=== PATIENT | female | born 1955 | race Caucasian/White ===

== ENCOUNTER 2024-10-29 14:27 | Emergency (ER) | payer MEDICARE, MEDICAID ==
[~2024-10-29] VITALS: Ht 152.4 cm; Wt 51.4 kg
[2024-10-29 15:20] LABS: BASO # 0.1 10^3/uL (0.0-0.2); BASO % 0.7 % (0.0-1.0); EOS # 0.2 10^3/uL (0.0-0.5); EOS % 2.3 % (0.0-3.0); HEMATOCRIT 41.2 % (36.0-47.0); HEMOGLOBIN 13.7 g/dl (12.0-15.5); LYMPH # 1.8 10^3/uL (1.5-5.0); MEAN CORPUSCULAR HEMOGLOBIN 35.5 pg (27.0-33.0); MEAN CORPUSCULAR HGB CONC 33.3 g/dl (32.0-36.5); MEAN CORPUSCULAR VOLUME 106.7 fl (80.0-96.0); MONO # 0.9 10^3/uL (0.0-0.8); MONO % 11.2 % (2.0-8.0); NEUTROPHILS # 5.1 10^3/uL (1.5-8.5); NEUTROPHILS % 63.2 % (36.0-66.0); PLATELET COUNT, AUTOMATED 340 10^3/uL (150-450); RED BLOOD COUNT 3.86 10^6/uL (4.00-5.40); WHITE BLOOD COUNT 8.1 10^3/uL (4.0-10.0)
[2024-10-29 15:36] LABS: INR 0.96; PARTIAL THROMBOPLASTIN TIME 32.2 SECONDS (24.8-34.2)
[2024-10-29 15:49] LABS: BLOOD UREA NITROGEN 17 MG/DL (9-23); CALCIUM LEVEL 9.4 MG/DL (8.3-10.6); CARBON DIOXIDE LEVEL 26 MMOL/L (20-31); CHLORIDE LEVEL 101 MMOL/L (98-107); CREATININE FOR GFR 0.85 MG/DL (0.55-1.30); GLOMERULAR FILTRATION RATE > 60.0 (>45); GLUCOSE, FASTING 114 MG/DL (74-106); POTASSIUM SERUM 5.6 MMOL/L (3.5-5.1); SODIUM LEVEL 132 MMOL/L (136-145)
[2024-10-29] MEDS ORDERED: oxyCODONE 10 MG CR TAB PO ONE (22:40)
[2024-10-29] MEDS: oxyCODONE 5MG TAB PO ONE (22:42)
[2024-10-29 23:35] VITALS: BP 162/77; TEMP 97.7; O2SAT 94
== END 2024-10-29 23:38 | disposition home or self-care (01) ==
LOC: M ED 14:27
DX: S30.0XXA Contusion of lower back and pelvis, initial encounter (principal); S70.00XA Contusion of unspecified hip, initial encounter; W00.0XXA Fall on same level due to ice and snow, initial encounter; Y92.410 Unspecified street and highway as the place of occurrence of the external cause; Y93.9 Activity, unspecified; Y99.9 Unspecified external cause status; Z96.643 Presence of artificial hip joint, bilateral; Z88.0 Allergy status to penicillin

== ENCOUNTER 2024-11-15 16:24 | Emergency (ER) | payer MEDICARE, MEDICAID ==
[~2024-11-15] VITALS: Ht 152.4 cm; Wt 56.8 kg
[2024-11-15] MEDS ORDERED: CLOP75TA2 (16:35)
[2024-11-15] MEDS ORDERED: FAMO40TA3 (16:35)
[2024-11-15] MEDS ORDERED: NALO12.5 (16:35)
[2024-11-15] MEDS ORDERED: DOLU1TAB (16:35)
[2024-11-15] MEDS ORDERED: AMLO1TAB24 (16:35)
[2024-11-15] MEDS ORDERED: FLUTISP (16:35)
[2024-11-15] MEDS ORDERED: SYMB16INH (16:35)
[2024-11-15] MEDS ORDERED: ALBU8.5H (16:35)
[2024-11-15] MEDS ORDERED: LISI10TA22 (16:35)
[2024-11-15] MEDS ORDERED: ATOR80TA59 (16:35)
[2024-11-15] MEDS ORDERED: OXYC10TA12 (16:35)
[2024-11-15 17:23] LABS: BASO # 0.1 10^3/uL (0.0-0.2); BASO % 0.6 % (0.0-1.0); EOS # 0.2 10^3/uL (0.0-0.5); EOS % 1.8 % (0.0-3.0); HEMATOCRIT 46.8 % (36.0-47.0); HEMOGLOBIN 15.8 g/dl (12.0-15.5); LYMPH # 1.8 10^3/uL (1.5-5.0); LYMPH % 21.5 % (24.0-44.0); MEAN CORPUSCULAR HEMOGLOBIN 37.4 pg (27.0-33.0); MEAN CORPUSCULAR HGB CONC 33.8 g/dl (32.0-36.5); MEAN CORPUSCULAR VOLUME 110.6 fl (80.0-96.0); MONO # 0.7 10^3/uL (0.0-0.8); NEUTROPHILS # 5.4 10^3/uL (1.5-8.5); PLATELET COUNT, AUTOMATED 429 10^3/uL (150-450); RED BLOOD COUNT 4.23 10^6/uL (4.00-5.40); WHITE BLOOD COUNT 8.1 10^3/uL (4.0-10.0)
[2024-11-15 17:29] LABS: ERYTHROCYTE SEDIMENTATION RATE 52 mm/hr (0-30)
[2024-11-15 17:30] LABS: APPEARANCE, URINE CLEAR (CLEAR); BACTERIA, URINE AUTO NEGATIVE (NEGATIVE); BILIRUBIN, URINE AUTO NEGATIVE (NEGATIVE); BLOOD, URINE BLOOD NEGATIVE (NEGATIVE); COLOR, URINE YELLOW (YELLOW); GLUCOSE, URINE (UA) AUTO NEGATIVE (NEGATIVE); KETONE, URINE AUTO NEGATIVE (NEGATIVE); LEUKOCYTE ESTERASE, URINE AUTO NEGATIVE (NEGATIVE); NITRITE, URINE AUTO NEGATIVE (NEGATIVE); PROTEIN, URINE AUTO NEGATIVE (NEGATIVE); RBC, URINE AUTO 0 /HPF (0-3); SPECIFIC GRAVITY URINE AUTO 1.005 (1.002-1.035); SQUAMOUS EPITHELIAL CELL UR AU 3 /HPF (0-6); UROBILINOGEN, URINE AUTO 0.2 mg/dL (0.0-2.0); WBC, URINE AUTO 1 /HPF (0-3)
[2024-11-15 17:32] LABS: ALBUMIN 3.4 G/DL (3.2-5.2); ALKALINE PHOSPHATASE 184 U/L (35-104); ALT/SGPT 21 U/L (7.0-40); AST/SGOT 17 U/L (<34); BILIRUBIN,DIRECT 0.2 MG/DL (<0.4); BILIRUBIN,TOTAL 0.5 MG/DL (0.3-1.2); BLOOD UREA NITROGEN 11 MG/DL (9-23); C REACTIVE PROTEIN QUANTITATIV 1.34 MG/DL (<1.0); CALCIUM LEVEL 9.9 MG/DL (8.3-10.6); CARBON DIOXIDE LEVEL 30 MMOL/L (20-31); CHLORIDE LEVEL 98 MMOL/L (98-107); CREATININE FOR GFR 0.81 MG/DL (0.55-1.30); GLOMERULAR FILTRATION RATE > 60.0 (>45); GLUCOSE, FASTING 98 MG/DL (74-106); POTASSIUM SERUM 4.2 MMOL/L (3.5-5.1); SODIUM LEVEL 135 MMOL/L (136-145); TOTAL PROTEIN 7.4 G/DL (5.7-8.2)
[2024-11-15] MEDS ORDERED: NYST100085 TOP (18:34)
[2024-11-15 18:59] VITALS: BP 150/70; TEMP 97.6; O2SAT 90
== END 2024-11-15 19:03 | disposition home or self-care (01) ==
LOC: M ED 16:24 → EDBD 16:24 → M ED 19:03
DX: B35.3 Tinea pedis (principal); I10 Essential (primary) hypertension; E78.5 Hyperlipidemia, unspecified; I73.9 Peripheral vascular disease, unspecified; F17.200 Nicotine dependence, unspecified, uncomplicated; Z88.0 Allergy status to penicillin

== ENCOUNTER 2025-10-18 17:14 | Inpatient (IN) | payer MEDICARE, MEDICAID ==
[~2025-10-18] VITALS: Ht 152.4 cm; Wt 54.1 kg
[~2025-10-18 17:14] MED LIST: ALBU8.5H INH; AMLO1TAB24 PO; ATOR80TA59 PO; CLOP75TA2 PO; DOLU1TAB PO; FAMO40TA3 PO; FLUTISP NARES; LISI10TA22 PO; NALO12.5 PO; NYST100085 TOP; OXYC10TA12; SYMB16INH INH
[2025-10-18] MEDS: ACETAMINOPHEN *IV* 1,000 MG in IV 1 EA IV ONE (18:50)
[2025-10-18] MEDS: NS 500 ML IV ONE (18:51)
[2025-10-18 19:31] LABS: ALT/SGPT 23.0 U/L (7.0-40); AST/SGOT 14.0 U/L (<34); CALCIUM LEVEL 10.1 MG/DL (8.3-10.6); CARBON DIOXIDE LEVEL 28.0 MMOL/L (20-31); CHLORIDE LEVEL 100.0 MMOL/L (98-107); CREATININE FOR GFR 1.3 MG/DL (0.55-1.30); GLOMERULAR FILTRATION RATE 45.1 (>45); POTASSIUM SERUM 5.8 MMOL/L (3.5-5.1); SODIUM LEVEL 134.0 MMOL/L (136-145)
[2025-10-18] MEDS ORDERED: ISOVUE-370 76% 100 ML VIAL As Ordered ONE (19:38)
[2025-10-18 19:55] LABS: BASO # 0.0 10^3/uL (0.0-0.2); BASO % 0.1 % (0.0-1.0); EOS # 0.0 10^3/uL (0.0-0.5); EOS % 0.0 % (0.0-3.0); LYMPH # 0.8 10^3/uL (1.5-5.0); LYMPH % 4.5 % (24.0-44.0); MONO # 1.1 10^3/uL (0.0-0.8); MONO % 6.5 % (2.0-8.0); NEUTROPHILS # 13.0 10^3/uL (1.5-8.5); NEUTROPHILS % 76.2 % (36.0-66.0); PLATELET COUNT, AUTOMATED 837 10^3/uL (150-450)
[2025-10-18 20:49] LABS: KETONE, URINE AUTO RFX NEGATIVE (NEGATIVE); LEUKOCYTE ESTERASE UR AUTO RFX NEGATIVE (NEGATIVE); MUCUS, URINE RFX SMALL (NEGATIVE); NITRITE, URINE AUTO RFX NEGATIVE (NEGATIVE); RBC, URINE AUTO RFX 0 /HPF (0-3); SQUAM EPITHELIAL CELL UR AURFX 1 /HPF (0-6); WBC, URINE AUTO RFX 0 /HPF (0-3)
[2025-10-18] MEDS: MORPHINE 4 MG/ML 1 ML VIAL IV PRN (21:04)
[2025-10-18 21:40] LABS: CALCIUM LEVEL 8.6 MG/DL (8.3-10.6); CARBON DIOXIDE LEVEL 30.0 MMOL/L (20-31); CHLORIDE LEVEL 102.0 MMOL/L (98-107); CREATININE FOR GFR 1.28 MG/DL (0.55-1.30); GLOMERULAR FILTRATION RATE 45.9 (>45); POTASSIUM SERUM 5.2 MMOL/L (3.5-5.1); SODIUM LEVEL 134.0 MMOL/L (136-145)
[2025-10-18] MEDS: IPRATROPIUM 0.5 MG/ALBUTEROL 2.5 MG INH SOL UD 3 ML NEB ONE (22:57)
[2025-10-19] MEDS: CYCLOBENZAPRINE 10 MG TABLET PO ONE (01:18)
[2025-10-19] MEDS ORDERED: ALBUTEROL SULFATE 2.5 MG/0.5 ML INH CONCENTRATE NEB SOLN NEB PRN (03:35)
[2025-10-19 08:12] LABS: PLATELET COUNT, AUTOMATED 684 10^3/uL (150-450)
[2025-10-19] MEDS ORDERED: HYDR-4517 PO (08:17)
[2025-10-19] MEDS ORDERED: CARV6.25 PO (08:18)
[2025-10-19] MEDS ORDERED: HOME MED LIST COMPLETE! XX SCH (08:20)
[2025-10-19 08:34] LABS: C REACTIVE PROTEIN QUANTITATIV < 0.50 MG/DL (<1.0)
[2025-10-19 08:43] LABS: ALT/SGPT 21 U/L (7.0-40); AST/SGOT 14 U/L (<34); POTASSIUM SERUM 5.1 MMOL/L (3.5-5.1)
[2025-10-19 08:44] LABS: ATYPICAL LYMPH 9 % (0-5); LYMPHOCYTES 11 % (16-44); METAMYELOCYTES 1 % (0-0); MONOCYTES 5 % (0-5); NEUTROPHILS 71 % (28-66)
[2025-10-19 08:45] LABS: PLATELET CLUMPS SMALL AMT; PLATELET ESTIMATE INCREASED (NORMAL)
[2025-10-19] MEDS: KETOROLAC 30 MG/ML 1 ML VIAL IV SCH (09:00)
[2025-10-19] MEDS: DICLOFENAC EPOLAMINE 1.3% PATCH TOP SCH (09:00)
[2025-10-19] MEDS ORDERED: CYCLOBENZAPRINE 10 MG TABLET PO PRN (09:00)
[2025-10-19] MEDS ORDERED: MOM 30 ML SUSPENSION UDC PO PRN (09:15)
[2025-10-19] MEDS ORDERED: BUDE10.7 INH (09:33)
[2025-10-19] MEDS: SYMBICORT 160/4.5MCG INHALER 6GM INH SCH (09:40)
[2025-10-19] MEDS: PATIROMER SORBITEX CALCIUM 8.4GM POWDER PACKET PO ONE (09:43)
[2025-10-19] MEDS: FAMOTIDINE 20 MG TAB PO SCH (09:43)
[2025-10-19] MEDS: CALCIUM GLUCONATE 1,000 MG in DEXTROSE 5% (D5W) MINI-BAG PLU 100 ML IV ONE (09:43)
[2025-10-19] MEDS: CLOPIDOGREL 75 MG TAB PO SCH (09:43)
[2025-10-19] MEDS: amLODIPine 5 MG TAB PO SCH (09:45)
[2025-10-19] MEDS: HYDROMORPHONE HCL 0.5 MG/0.5 ML SYRINGE IV ONE (09:46)
[2025-10-19] MEDS: ACETAMINOPHEN 500 MG TAB PO SCH (12:00)
[2025-10-19] MEDS ORDERED: FLUTICASONE PROPIONATE 0.05% NASAL SPRAY 16 GM NARES PRN (14:40)
[2025-10-19] MEDS ORDERED: ALBUTEROL 90 MCG/ACT 8 GM HFA INHALER INH PRN (14:40)
[2025-10-19 17:10] VITALS: BP 141/91; TEMP 97.9; O2SAT 98
[2025-10-19] MEDS: MORPHINE 4 MG/ML 1 ML VIAL IV PRN (19:01)
[2025-10-19 20:02] VITALS: BP 128/73; TEMP 98.1; O2SAT 95
[2025-10-19] MEDS: ATORVASTATIN 20 MG TAB PO SCH (20:23)
[2025-10-20 04:18] VITALS: BP 147/76; TEMP 98.9; O2SAT 96
[2025-10-20] MEDS ORDERED: LevoFLOXacin IV 750 MG in IV 1 EA IV SCH (08:25)
[2025-10-20] MEDS ORDERED: metroNIDAZOLE 500 MG in IV 1 EA IV SCH (08:25)
[2025-10-20] MEDS ORDERED: amLODIPine 5 MG TAB PO SCH (09:00)
[2025-10-20 12:00] VITALS: BP 153/101; TEMP 98.8; O2SAT 94
[2025-10-20 12:13] LABS: PLATELET COUNT, AUTOMATED 580 10^3/uL (150-450)
[2025-10-20 12:34] LABS: ALT/SGPT 21.0 U/L (7.0-40); AST/SGOT 19.0 U/L (<34); CALCIUM LEVEL 8.9 MG/DL (8.3-10.6); CARBON DIOXIDE LEVEL 28.0 MMOL/L (20-31); CHLORIDE LEVEL 102.0 MMOL/L (98-107); CREATININE FOR GFR 0.94 MG/DL (0.55-1.30); GLOMERULAR FILTRATION RATE 66.5 (>45); POTASSIUM SERUM 4.4 MMOL/L (3.5-5.1); SODIUM LEVEL 139.0 MMOL/L (136-145)
[2025-10-20 12:56] LABS: ATYPICAL LYMPH 7 % (0-5); EOSINOPHILS 1 % (0-3); LYMPHOCYTES 10 % (16-44); METAMYELOCYTES 1 % (0-0); MONOCYTES 5 % (0-5); MYELOCYTES 2 % (0-0); NEUTROPHILS 70 % (28-66)
[2025-10-20 12:58] LABS: PLATELET CLUMPS SMALL AMT; PLATELET ESTIMATE INCREASED (NORMAL)
[2025-10-20] MEDS: CALCIUM CARBONATE 500 MG CHEW U/D PO PRN (13:27)
[2025-10-20 13:55] VITALS: BP 110/77
[2025-10-20 20:39] VITALS: BP 180/92; TEMP 98.4; O2SAT 95
[2025-10-21 00:41] VITALS: BP 130/76; O2SAT 96
[2025-10-21 05:20] VITALS: BP 140/81; TEMP 97.5; O2SAT 95
[2025-10-21 06:43] LABS: BASO # 0.0 10^3/uL (0.0-0.2); BASO % 0.1 % (0.0-1.0); EOS # 0.1 10^3/uL (0.0-0.5); EOS % 0.5 % (0.0-3.0); LYMPH # 0.8 10^3/uL (1.5-5.0); LYMPH % 6.3 % (24.0-44.0); MONO # 1.0 10^3/uL (0.0-0.8); MONO % 8.4 % (2.0-8.0); NEUTROPHILS # 9.1 10^3/uL (1.5-8.5); NEUTROPHILS % 77.1 % (36.0-66.0)
[2025-10-21 06:56] LABS: PLATELET COUNT, AUTOMATED 466 10^3/uL (150-450)
[2025-10-21 06:57] LABS: ALT/SGPT 20.0 U/L (7.0-40); AST/SGOT 23.0 U/L (<34); CALCIUM LEVEL 8.8 MG/DL (8.3-10.6); CARBON DIOXIDE LEVEL 27.0 MMOL/L (20-31); CHLORIDE LEVEL 103.0 MMOL/L (98-107); CREATININE FOR GFR 0.9 MG/DL (0.55-1.30); GLOMERULAR FILTRATION RATE 70.1 (>45); POTASSIUM SERUM 4.7 MMOL/L (3.5-5.1); SODIUM LEVEL 137.0 MMOL/L (136-145)
[2025-10-21 12:00] VITALS: BP 125/88; TEMP 98.7; O2SAT 95
[2025-10-21] MEDS: HYDROMORPHONE HCL 0.5 MG/0.5 ML SYRINGE IV ONE (12:55)
[2025-10-21 20:00] VITALS: BP_SYST 132; BP_SYST 135; BP_DIAS 96; BP_DIAS 98; TEMP 97.5; TEMP 98.1; O2SAT 98
[2025-10-22 04:00] VITALS: BP 149/81; TEMP 97.5; O2SAT 98
[2025-10-22 05:38] VITALS: BP 149/81; TEMP 97.5
[2025-10-22 06:19] LABS: BASO # 0.1 10^3/uL (0.0-0.2); BASO % 0.4 % (0.0-1.0); EOS # 0.1 10^3/uL (0.0-0.5); EOS % 0.4 % (0.0-3.0); LYMPH # 0.6 10^3/uL (1.5-5.0); LYMPH % 3.0 % (24.0-44.0); MONO # 1.1 10^3/uL (0.0-0.8); MONO % 5.4 % (2.0-8.0); NEUTROPHILS # 17.1 10^3/uL (1.5-8.5); NEUTROPHILS % 88.1 % (36.0-66.0)
[2025-10-22 06:20] LABS: PLATELET COUNT, AUTOMATED 320 10^3/uL (150-450)
[2025-10-22 06:45] LABS: ALT/SGPT 21.0 U/L (7.0-40); AST/SGOT 28.0 U/L (<34); CALCIUM LEVEL 8.7 MG/DL (8.3-10.6); CARBON DIOXIDE LEVEL 23.0 MMOL/L (20-31); CHLORIDE LEVEL 104.0 MMOL/L (98-107); CREATININE FOR GFR 0.79 MG/DL (0.55-1.30); GLOMERULAR FILTRATION RATE 81.9 (>45); POTASSIUM SERUM 4.4 MMOL/L (3.5-5.1); SODIUM LEVEL 136.0 MMOL/L (136-145)
[2025-10-22 12:00] VITALS: BP 136/91; TEMP 99.6; O2SAT 91
[2025-10-22] MEDS: LR 1,000 ML IV SCH (15:39)
[2025-10-22 20:00] VITALS: BP 123/80; TEMP 98.3; O2SAT 91
[2025-10-23 04:00] VITALS: BP 106/71; TEMP 98.4; O2SAT 93
[2025-10-23 06:17] LABS: BASO # 0.1 10^3/uL (0.0-0.2); BASO % 0.2 % (0.0-1.0); EOS # 0.1 10^3/uL (0.0-0.5); EOS % 0.3 % (0.0-3.0); LYMPH # 0.6 10^3/uL (1.5-5.0); LYMPH % 2.7 % (24.0-44.0); MONO # 1.2 10^3/uL (0.0-0.8); MONO % 5.1 % (2.0-8.0); NEUTROPHILS # 20.2 10^3/uL (1.5-8.5); NEUTROPHILS % 89.7 % (36.0-66.0); PLATELET COUNT, AUTOMATED 261 10^3/uL (150-450)
[2025-10-23 07:04] LABS: ALT/SGPT 32 U/L (7.0-40); AST/SGOT 46 U/L (<34); CALCIUM LEVEL 8.7 MG/DL (8.3-10.6); CARBON DIOXIDE LEVEL 25 MMOL/L (20-31); CHLORIDE LEVEL 104 MMOL/L (98-107); CREATININE FOR GFR 0.73 MG/DL (0.55-1.30); GLOMERULAR FILTRATION RATE > 90.0 (>45); POTASSIUM SERUM 4.8 MMOL/L (3.5-5.1); SODIUM LEVEL 136 MMOL/L (136-145)
[2025-10-23] MEDS: PANTOPRAZOLE 40MG VIAL IV SCH (08:21)
[2025-10-23] MEDS: metroNIDAZOLE 500 MG in IV 1 EA IV SCH (13:39)
[2025-10-23 19:28] VITALS: BP 106/67; TEMP 98.8; O2SAT 90
[2025-10-23] MEDS: LR 1,000 ML IV SCH (20:00)
[2025-10-24 04:59] VITALS: BP 128/67; TEMP 98.1; O2SAT 97
[2025-10-24] MEDS: LevoFLOXacin IV 750 MG in IV 1 EA IV SCH (05:53)
[2025-10-24 07:02] LABS: BASO # 0.0 10^3/uL (0.0-0.2); BASO % 0.2 % (0.0-1.0); EOS # 0.1 10^3/uL (0.0-0.5); EOS % 0.4 % (0.0-3.0); LYMPH # 0.5 10^3/uL (1.5-5.0); LYMPH % 2.8 % (24.0-44.0); MONO # 1.2 10^3/uL (0.0-0.8); MONO % 6.1 % (2.0-8.0); NEUTROPHILS # 16.6 10^3/uL (1.5-8.5); NEUTROPHILS % 88.9 % (36.0-66.0); PLATELET COUNT, AUTOMATED 213 10^3/uL (150-450)
[2025-10-24 07:32] LABS: ALT/SGPT 25.0 U/L (7.0-40); AST/SGOT 26.0 U/L (<34); CALCIUM LEVEL 8.1 MG/DL (8.3-10.6); CARBON DIOXIDE LEVEL 23.0 MMOL/L (20-31); CHLORIDE LEVEL 101.0 MMOL/L (98-107); CREATININE FOR GFR 0.91 MG/DL (0.55-1.30); GLOMERULAR FILTRATION RATE 69.2 (>45); POTASSIUM SERUM 3.9 MMOL/L (3.5-5.1); SODIUM LEVEL 134.0 MMOL/L (136-145)
[2025-10-24] MEDS: MIRALAX *UNIT DOSE* 17 GM PACKET PO ONE (09:02)
[2025-10-24 12:13] VITALS: BP 108/64; TEMP 98.8; O2SAT 94
[2025-10-24] MEDS: D5W/LR 1,000 ML IV SCH (12:30)
[2025-10-24 20:00] VITALS: BP 141/82; TEMP 98.4; O2SAT 95
[2025-10-25 04:00] VITALS: BP 97/62; TEMP 98.2; O2SAT 91
[2025-10-25] MEDS: SENNOSIDES/DOCUSATE SODIUM 8.6 MG/50MG TAB PO PRN (07:50)
[2025-10-25 10:16] LABS: BASO # 0.0 10^3/uL (0.0-0.2); BASO % 0.2 % (0.0-1.0); EOS # 0.1 10^3/uL (0.0-0.5); EOS % 0.3 % (0.0-3.0); LYMPH # 0.4 10^3/uL (1.5-5.0); LYMPH % 2.6 % (24.0-44.0); MONO # 1.1 10^3/uL (0.0-0.8); MONO % 7.3 % (2.0-8.0); NEUTROPHILS # 13.2 10^3/uL (1.5-8.5); NEUTROPHILS % 87.9 % (36.0-66.0); PLATELET COUNT, AUTOMATED 211 10^3/uL (150-450)
[2025-10-25 11:05] LABS: ALT/SGPT 28.0 U/L (7.0-40); AST/SGOT 32.0 U/L (<34); CALCIUM LEVEL 8.0 MG/DL (8.3-10.6); CARBON DIOXIDE LEVEL 25.0 MMOL/L (20-31); CHLORIDE LEVEL 100.0 MMOL/L (98-107); CREATININE FOR GFR 1.03 MG/DL (0.55-1.30); GLOMERULAR FILTRATION RATE 59.6 (>45); POTASSIUM SERUM 4.3 MMOL/L (3.5-5.1); SODIUM LEVEL 133.0 MMOL/L (136-145)
[2025-10-25 11:37] VITALS: BP 113/59; TEMP 98.4; O2SAT 92
[2025-10-25] MEDS: ONDANSETRON 4MG/2ML VIAL IV SCH (11:50)
[2025-10-25 16:00] VITALS: BP 131/83; TEMP 98.1; O2SAT 91
[2025-10-25 19:44] VITALS: BP 117/67; TEMP 98
[2025-10-25 21:00] VITALS: O2SAT 97
[2025-10-25] MEDS: NICOTINE 14 MG/24 HR TRANSDERMAL TD SCH (21:00)
[2025-10-26 04:37] VITALS: BP 113/77; TEMP 98.8; O2SAT 95
[2025-10-26] MEDS: METOPROLOL SUCC *XL* 12.5 MG PER 1/2 TAB PO SCH (08:44)
[2025-10-26 08:47] VITALS: O2SAT 91; O2SAT 95
[2025-10-26 12:20] VITALS: BP 115/63
[2025-10-26] MEDS: BISACODYL 5 MG TAB PO ONE (12:20)
[2025-10-26] MEDS: FUROSEMIDE 20 MG/2 ML VIAL IV ONE (12:20)
[2025-10-26] MEDS: ASPIRIN 81 MG ENTERIC TABLET PO SCH (12:54)
[2025-10-26] MEDS: MIRALAX *UNIT DOSE* 17 GM PACKET PO SCH (12:54)
[2025-10-26 14:00] VITALS: BP 150/89; TEMP 98.1; O2SAT 87
[2025-10-26] MEDS: ENOXAPARIN 40 MG/0.4 ML SYRINGE (J1650 PER 10MG) SC SCH (20:44)
[2025-10-27 04:19] VITALS: BP 109/58; TEMP 97.7; O2SAT 91
[2025-10-27 07:42] LABS: PLATELET COUNT, AUTOMATED 173 10^3/uL (150-450)
[2025-10-27 08:00] VITALS: BP 96/68; TEMP 98; O2SAT 95
[2025-10-27 08:06] LABS: ATYPICAL LYMPH 1 % (0-5); BASOPHILS 1 % (0-1); EOSINOPHILS 1 % (0-3); MONOCYTES 8 % (0-5); NEUTROPHILS 86 % (28-66)
[2025-10-27 08:08] LABS: PLATELET ESTIMATE NORMAL (NORMAL)
[2025-10-27 08:18] LABS: ALT/SGPT 22.0 U/L (7.0-40); AST/SGOT 24.0 U/L (<34); CALCIUM LEVEL 8.3 MG/DL (8.3-10.6); CARBON DIOXIDE LEVEL 22.0 MMOL/L (20-31); CHLORIDE LEVEL 100.0 MMOL/L (98-107); CREATININE FOR GFR 1.16 MG/DL (0.55-1.30); GLOMERULAR FILTRATION RATE 51.7 (>45); POTASSIUM SERUM 4.3 MMOL/L (3.5-5.1); SODIUM LEVEL 130.0 MMOL/L (136-145)
== END 2025-10-27 08:20 | disposition other institution (70) | DRG 439 ==
LOC: M ED 17:14 → OBSVTOIN 17:15 → M ED INP 17:15 → M MS4PR 10-19 17:10 → M MS5PR 10-25 15:38
PROVIDERS: ADMIT General Practice; ATTEND Student in an Organized Health Care Education/Training Program
DX: K85.10 Biliary acute pancreatitis without necrosis or infection (principal); B20 Human immunodeficiency virus [HIV] disease; E87.1 Hypo-osmolality and hyponatremia; J44.9 Chronic obstructive pulmonary disease, unspecified; I10 Essential (primary) hypertension; M54.50 Low back pain, unspecified; I25.10 Atherosclerotic heart disease of native coronary artery without angina pectoris; E87.5 Hyperkalemia; G89.29 Other chronic pain; I73.9 Peripheral vascular disease, unspecified; N20.0 Calculus of kidney; F17.200 Nicotine dependence, unspecified, uncomplicated; Z79.51 Long term (current) use of inhaled steroids; Z79.899 Other long term (current) drug therapy; Z88.0 Allergy status to penicillin; Z90.49 Acquired absence of other specified parts of digestive tract; Z95.5 Presence of coronary angioplasty implant and graft; Z95.828 Presence of other vascular implants and grafts; Z79.891 Long term (current) use of opiate analgesic

== ENCOUNTER 2025-10-31 13:31 | Inpatient (IN) | payer MEDICARE, MEDICAID ==
[~2025-10-31 13:31] MED LIST changes: +BUDE10.7 INH; +CARV6.25 PO; +HYDR-4517 PO
[2025-10-31 16:54] VITALS: BP 131/76; TEMP 98.7; O2SAT 89
[2025-10-31] MEDS ORDERED: MIRA3350 PO (17:45)
[2025-10-31] MEDS ORDERED: FURO40TA2 PO (17:45)
[2025-10-31] MEDS ORDERED: MAGN400T33 PO (17:45)
[2025-10-31] MEDS ORDERED: MOME13HF8 INH (17:45)
[2025-10-31] MEDS ORDERED: OXYC10TA12 PO (17:45)
[2025-10-31] MEDS ORDERED: SENN-188 PO (17:45)
[2025-10-31] MEDS ORDERED: ATOR1TAB21 PO (17:45)
[2025-10-31] MEDS ORDERED: PANT-23 PO (17:45)
[2025-10-31] MEDS ORDERED: NALOXONE IV (17:45)
[2025-10-31] MEDS ORDERED: HOME MED LIST COMPLETE! XX SCH (17:50)
[2025-10-31 18:00] LABS: PLATELET COUNT, AUTOMATED 148 10^3/uL (150-450)
[2025-10-31 18:28] LABS: ALT/SGPT 17.0 U/L (7.0-40); AST/SGOT 22.0 U/L (<34); CALCIUM LEVEL 7.6 MG/DL (8.3-10.6); CARBON DIOXIDE LEVEL 31.0 MMOL/L (20-31); CHLORIDE LEVEL 96.0 MMOL/L (98-107); CREATININE FOR GFR 0.76 MG/DL (0.55-1.30); GLOMERULAR FILTRATION RATE 85.8 (>45); POTASSIUM SERUM 3.7 MMOL/L (3.5-5.1); SODIUM LEVEL 134.0 MMOL/L (136-145)
[2025-10-31 18:33] LABS: INR 1.24
[2025-10-31] MEDS ORDERED: FLUTICASONE PROPIONATE 0.05% NASAL SPRAY 16 GM NARES PRN (19:00)
[2025-10-31] MEDS ORDERED: ALBUTEROL 90 MCG/ACT 8 GM HFA INHALER INH PRN (19:00)
[2025-10-31 19:59] VITALS: BP 115/68; TEMP 101; O2SAT 91
[2025-10-31] MEDS: SYMBICORT 160/4.5MCG INHALER 6GM INH SCH (20:13)
[2025-10-31] MEDS: PANTOPRAZOLE 40MG TAB PO SCH (20:34)
[2025-10-31] MEDS: SENNA 8.6 MG TAB PO SCH (20:34)
[2025-10-31] MEDS: FUROSEMIDE 40 MG/4 ML VIAL IV SCH (20:34)
[2025-10-31] MEDS: ACETAMINOPHEN 500 MG TAB PO SCH (20:36)
[2025-10-31] MEDS: HEPARIN SOD 5000 UNITS/ML 1 ML VIAL/SYRINGE SC SCH (20:36)
[2025-10-31] MEDS ORDERED: LevoFLOXacin IV 750 MG in IV 1 EA IV SCH (21:00)
[2025-10-31 21:43] VITALS: BP 127/74; TEMP 99.8; O2SAT 92
[2025-10-31 23:38] VITALS: BP 134/80; TEMP 98.8; O2SAT 94
[2025-11-01] VITALS (10 sets, daily range): BP systolic 105–139; BP diastolic 51–86; TEMP 97.8–98.2; O2SAT 84–95
[2025-11-01] MEDS: metroNIDAZOLE 500 MG in IV 1 EA IV SCH (01:42)
[2025-11-01] MEDS: LevoFLOXacin IV 750 MG in IV 1 EA IV SCH (02:43)
[2025-11-01] MEDS: TIOTROPIUM BROM 2.5MCG/ACTUATION 4GM INH INH SCH (08:33)
[2025-11-01] MEDS ORDERED: FUROSEMIDE 40 MG TAB PO SCH (09:00)
[2025-11-01] MEDS: MIRALAX *UNIT DOSE* 17 GM PACKET PO SCH (09:00)
[2025-11-01] MEDS ORDERED: amLODIPine 5 MG TAB PO SCH (09:00)
[2025-11-01] MEDS: UNRESOLVED PATIENT OWN MED ORDER XX SCH (09:00)
[2025-11-01] MEDS: FAMOTIDINE 20 MG TAB PO SCH (09:02)
[2025-11-01] MEDS: ATORVASTATIN 20 MG TAB PO SCH (09:02)
[2025-11-01] MEDS: MAGNESIUM OXIDE 400 MG TAB PO SCH (09:03)
[2025-11-01] MEDS: CLOPIDOGREL 75 MG TAB PO SCH (09:03)
[2025-11-01 16:27] LABS: PLATELET COUNT, AUTOMATED 153 10^3/uL (150-450)
[2025-11-01 16:50] LABS: CALCIUM LEVEL 7.3 MG/DL (8.3-10.6); CARBON DIOXIDE LEVEL 32.0 MMOL/L (20-31); CHLORIDE LEVEL 94.0 MMOL/L (98-107); CREATININE FOR GFR 0.84 MG/DL (0.55-1.30); GLOMERULAR FILTRATION RATE 76.1 (>45); POTASSIUM SERUM 3.6 MMOL/L (3.5-5.1); SODIUM LEVEL 133.0 MMOL/L (136-145)
[2025-11-02 00:16] VITALS: BP 108/58; TEMP 98.5; O2SAT 92
[2025-11-02 05:16] VITALS: BP 141/85; TEMP 98; O2SAT 94
[2025-11-02 13:00] VITALS: BP 119/67
[2025-11-02] MEDS: FUROSEMIDE 40 MG/4 ML VIAL IV ONE (13:00)
[2025-11-02] MEDS ORDERED: METR-265 PO (13:01)
[2025-11-02] MEDS ORDERED: LEVO1TAB40 PO (13:01)
[2025-11-02] MEDS ORDERED: SENN-188 PO (13:01)
[2025-11-02] MEDS ORDERED: CARV6.25 PO (13:01)
[2025-11-02] MEDS ORDERED: FURO40TA2 PO (13:01)
[2025-11-02] MEDS ORDERED: PANT-23 PO (13:01)
[2025-11-02] MEDS ORDERED: MAGN400T33 PO (13:01)
[2025-11-02] MEDS ORDERED: BUPR150T12 PO (13:06)
[2025-11-02] MEDS ORDERED: ATOR80TA59 PO (13:06)
== END 2025-11-02 15:09 | disposition home health service (06) | DRG 439 ==
LOC: M MSPAV 14:09
PROVIDERS: ADMIT Internal Medicine; ATTEND Internal Medicine Nephrology
PROC: B246ZZZ Ultrasonography of Right and Left Heart (ICD-10-PCS; principal; 2025-11-01)
DX: K85.90 Acute pancreatitis without necrosis or infection, unspecified (principal); E87.1 Hypo-osmolality and hyponatremia; J90 Pleural effusion, not elsewhere classified; I10 Essential (primary) hypertension; K22.2 Esophageal obstruction; I25.10 Atherosclerotic heart disease of native coronary artery without angina pectoris; I73.9 Peripheral vascular disease, unspecified; Z95.828 Presence of other vascular implants and grafts; J44.9 Chronic obstructive pulmonary disease, unspecified; M54.9 Dorsalgia, unspecified; G89.29 Other chronic pain; Z79.891 Long term (current) use of opiate analgesic; Z90.49 Acquired absence of other specified parts of digestive tract; Z90.79 Acquired absence of other genital organ(s); Z87.891 Personal history of nicotine dependence; K80.20 Calculus of gallbladder without cholecystitis without obstruction; K59.00 Constipation, unspecified; Z79.899 Other long term (current) drug therapy; Z88.0 Allergy status to penicillin; Z21 Asymptomatic human immunodeficiency virus [HIV] infection status